=== PATIENT | female | born 1985 | race Caucasian/White ===

== ENCOUNTER → 2016-11-13 | Outpatient (CLI) | payer BC ==
[~2016-11-13] MED LIST: FRRS300 PO; IBUP600T44 PO
== END | disposition home or self-care (01) ==
LOC: C.PAPS 07:53
PROVIDERS: ATTEND Obstetrics & Gynecology
DX: Z01.419 Encounter for gynecological examination (general) (routine) without abnormal findings (principal)

== ENCOUNTER 2017-06-13 12:04 | Inpatient (IN) | payer BC, OTHER ==
[~2017-06-13] VITALS: Ht 162.6 cm; Wt 61.6 kg
[2017-06-13] MEDS ORDERED: SODIUM CHLORIDE 0.9% 1000ML 1,000 ML IV STA (12:17)
[2017-06-13] MEDS ORDERED: MoRPHine SULFATE 4 MG/ML 1 ML CARP\\VIAL ONE (12:17)
[2017-06-13] MEDS ORDERED: ONDANSETRON INJ 2 MG/ML 2 ML VIAL IV STA (12:17)
[2017-06-13] MEDS ORDERED: ONDANSETRON INJ 2 MG/ML 2 ML VIAL ONE (12:17)
[2017-06-13] MEDS ORDERED: MoRPHine SULFATE 4 MG/ML 1 ML CARP\\VIAL IV STA ×2 (12:17→13:50)
[2017-06-13 12:32] LABS: BASO % 0.3 %; BASO ABS # 0.02 K/uL (0-0.2); EOS % 0.6 %; EOS ABS # 0.04 K/uL (0-0.5); HEMATOCRIT 44.3 % (37-47); HEMOGLOBIN 15.2 g/dL (12.0-16.0); LYMPH % 22.8 %; MEAN CELL VOLUME 87.7 fL (80-100); MEAN CORPUSCULAR HEMOGLOBIN 30.1 pg (25-34); MEAN CORPUSCULAR HGB CONC 34.3 g/dl (32-36); MEAN PLATELET VOLUME 10.6 fL (7.4-10.4); MONO % 7.1 %; NEUT % 69.2 %; NEUT ABS # 4.87 K/uL (1.4-6.5); PLATELET COUNT 172 K/uL (130-400); RED CELL DISTRIBUTION WIDTH CV 12.4 % (11.5-14.5); RED CELL DISTRIBUTION WIDTH SD 39.3 fL (36.4-46.3); WHITE BLOOD COUNT 7.03 K/uL (4.8-10.8)
[2017-06-13] MEDS ORDERED: ACET-1311 PO (12:37)
[2017-06-13 12:55] LABS: ALBUMIN 4.4 gm/dl (3.4-5.0); CALCIUM 9.2 mg/dl (8.5-10.1); CREATININE 0.82 mg/dl (0.60-1.20); POTASSIUM 3.3 mmol/L (3.5-5.1)
[2017-06-13 12:58] LABS: TOTAL PROTEIN 7.4 gm/dl (6.4-8.2)
--- NOTE | 2017-06-13 13:45 | DIAGNOSTIC IMAGING REPORT ---
ULTRASOUND OF THE PELVIS CLINICAL HISTORY: Left pelvic pain. COMPARISON STUDY: No priors. TECHNIQUE: Real-time, grayscale, and color flow sonography of the pelvis is performed both transabdominally and endovaginally. Images are reviewed in the transverse and longitudinal planes. FINDINGS: Uterus: The uterus is normal in size and echotexture, measuring 8.2 x 4.7 x 6.3 cm. A Nabothian cyst is incidentally noted in the cervix. Endometrium: The endometrium is normal in appearance, and the endometrial stripe is normal in thickness measuring up to 0.4 cm. There is trace fluid within the endometrial canal. An intrauterine device is in place. Ovaries: The ovaries are normal in size and morphology. The right ovary measures 3.6 x 1.8 x 2.2 cm and the left ovary measures 4.2 x 2.8 x 3.2 cm. A minimally complex predominantly cystic exophytic follicle arises from the right ovary and measures up to 3.2 cm. A dominant follicle in the left ovary measures 2.9 cm. Additional smaller follicles are seen bilaterally. Normal Doppler waveforms are shown within both ovaries. Pelvis: There is trace free fluid in the cul-de-sac. No concerning adnexal lesion is seen. Viscera: Survey images of the left kidney show moderate hydronephrosis. IMPRESSION: 1. No acute sonographic abnormality is identified in the pelvis. 2. Moderate left hydronephrosis is identified. Given the reported history of left pelvic pain considering nephrolithiasis as a possible etiology. 3. Trace fluid is noted in the endometrial canal and an intrauterine device is in place. 4. Dominant follicles are noted in the ovaries. The largest follicle on the right is minimally complex and exophytic. A precautionary follow-up ultrasound is recommended in 3 menstrual cycles to document resolution. 5. Trace free fluid in the cul-de-sac is likely within physiologic limits. Electronically signed by: Errol Rabago M.D. 06/13/2017 1:44 PM Dictated Date/Time: 06/13/2017 1:39 PM
[2017-06-13] MEDS ORDERED: KETOROLAC TROMETHAMINE 30 MG/ML VIAL IV STA (13:50)
--- NOTE | 2017-06-13 14:55 | DIAGNOSTIC IMAGING REPORT ---
CT SCAN OF THE ABDOMEN AND PELVIS WITHOUT IV CONTRAST CLINICAL HISTORY: Left lower quadrant abdominal pain. Hydronephrosis seen by ultrasound. COMPARISON STUDY: Pelvic ultrasound dated 06/13/2017. TECHNIQUE: CT scan of the abdomen and pelvis is performed from the lung bases to the proximal femora. Images are reviewed in the axial, sagittal, and coronal planes. IV contrast was not administered for this examination. A dose lowering technique was utilized adhering to the principles of ALARA. CT DOSE: 506.74 mGy.cm FINDINGS: Lung bases: The heart is normal in size and without pericardial effusion. The lung bases are clear. Liver: The unenhanced liver is normal in size, contour, and attenuation. There is no intrahepatic biliary ductal dilatation. An 8 mm cyst is noted in the right lobe. Gallbladder: Unremarkable. Spleen: Normal in size and attenuation. Pancreas: Unremarkable. Adrenal glands: Unremarkable. Kidneys: The unenhanced kidneys are normal in size. There is a 7 mm obstructing calculus in the distal left ureter seen on image #[id number]. This is located approximately 2.5 cm above the vesicoureteral junction and causes moderate left hydroureteronephrosis. There is associated left-sided perinephric and periureteric stranding and trace fluid. No additional calculi are identified in the left kidney. A punctate nonobstructing right renal calculus is noted. There is no right-sided hydronephrosis. There is no evidence of contour deforming renal mass lesion. Abdominal vasculature: The abdominal aorta is normal in course and caliber. Bowel: The small bowel and colon are normal in course and caliber. The appendix is well-visualized and normal. Peritoneum: There is no intraperitoneal free air or abdominal ascites. There is a fat-containing umbilical hernia. Lymphadenopathy: None. Pelvic viscera: The there is a small focus of gas within the bladder lumen. The bladder is otherwise normal as visualized. Uterus is normal in appearance noting an intrauterine device in place. Large bilateral ovarian follicles are observed measure up to 2.9 cm. The largest follicle on the right appears hyperdense and is likely hemorrhagic. There is trace free fluid in the cul-de-sac. Skeletal structures: No lytic or blastic lesions are seen. IMPRESSION: 1. There is a 7 mm obstructing calculus in the distal left ureter. This causes moderate left hydroureteronephrosis. 2. No additional left renal calculi are identified. A punctate nonobstructing calculus is seen on the right. 3. A small focus of gas is present within the bladder lumen and may be related to instrumentation. Correlation with urinalysis will be required. 4. Trace free fluid in the cul-de-sac is nonspecific and likely within physiologic limits. 5. Bilateral ovarian follicles as above. A hyperdense follicle on the right is likely hemorrhagic. Electronically signed by: Errol Rabago M.D. 06/13/2017 2:54 PM Dictated Date/Time: 06/13/2017 2:45 PM
--- NOTE | 2017-06-13 16:04 | EMERGENCY ROOM VISIT NOTE ---
History First contact with patient: 12:09 Chief Complaint: ABDOMINAL PAIN Stated Complaint: L BACK SIDE Nursing Triage Summary: Sudden onset of severe left lower quadrant pain. No vomiting or nausea. Patient with no hx of kidney stones. Patient states her urine has been dark. History of Present Illness The patient is a 31 year old female who presents to the Emergency Room via private vehicle accompanied by with complaints of "abdominal pain/left flank pain". The patient states that she was at [employer] when she developed abrupt onset of left lower quadrant abdominal pain and also left-sided flank pain. She notes she has an IUD in place. She denies a history of ovarian cysts or stones. Her pain is a 10/10. She denies taking any medications. She notes that her urine has been red recently. Review of Systems A complete 10-point Review of Systems was discussed with the patient, with pertinent positives and negatives listed in the History of Present Illness. All remaining Review of Systems questions can be considered negative unless otherwise specified. Past Medical/Surgical History IUD placement Family History No pertinent Social History Smoking Status: Never Smoker Social History: Pt. lives locally with family Current/Historical Medications Scheduled PRN Acetaminophen (Tylenol), 650 MG PO for Mild Pain Allergies Coded Allergies: No Known Allergies (Verified , 06/13/17) Physical Exam Vital Signs Date Time Temp Pulse Resp B/P (MAP) Pulse Ox O2 Delivery O2 Flow Rate FiO2 06/13/17 13:58 67 18 117/80 97 Room Air 06/13/17 12:28 71 06/13/17 12:27 75 20 113/78 100 Room Air 06/13/17 12:22 100 Room Air 06/13/17 12:07 36.5 83 18 122/80 100 Room Air Physical Exam VITAL SIGNS - Vital signs and nursing notes were reviewed. Stable. GENERAL - 31-year-old female appearing her stated age who is in no acute distress but appears to be in pain. Communicates well with provider and answers questions appropriately. SKIN - Without rashes. No meningeal or petechial rashes. HEAD - NC/AT. EYES - PERRL with EOMI bilaterally. Sclera anicteric. EARS - No deformities of external structures noted on gross examination bilaterally. NOSE - Midline and without cyanosis. No epistaxis or purulent drainage noted. MOUTH/OROPHARYNX - Without perioral cyanosis. NECK - Neck with FROM. LUNGS - Chest wall symmetric without accessory muscle use, intercostals retractions, or central cyanosis. Normal vesicular breath sounds CTA B/L. No wheezes, rales, or rhonchi appreciated. CARDIAC - RRR with S1/S2. No murmur, rubs, or gallops appreciated. ABDOMEN - Abdominal contour normal without pulsations or visible masses. LLQ abd tenderness noted. WNL bowel sounds. EXTREMITIES - No clubbing or peripheral cyanosis. No pretibial edema present. + 5/5 strength noted in UE/LE bilaterally. NEUROLOGIC - Cranial nerves II through XII grossly intact. Sensory intact to light touch throughout. PSYCH - A&O, and cooperates fully with examiner. Pt is very pleasant and interacts well with examiner. Medical Decision & Procedures ER Provider Diagnostic Interpretation: ULTRASOUND OF THE PELVIS CLINICAL HISTORY: Left pelvic pain. COMPARISON STUDY: No priors. TECHNIQUE: Real-time, grayscale, and color flow sonography of the pelvis is performed both transabdominally and endovaginally. Images are reviewed in the transverse and longitudinal planes. FINDINGS: Uterus: The uterus is normal in size and echotexture, measuring 8.2 x 4.7 x 6.3 cm. A Nabothian cyst is incidentally noted in the cervix. Endometrium: The endometrium is normal in appearance, and the endometrial stripe is normal in thickness measuring up to 0.4 cm. There is trace fluid within the endometrial canal. An intrauterine device is in place. Ovaries: The ovaries are normal in size and morphology. The right ovary measures 3.6 x 1.8 x 2.2 cm and the left ovary measures 4.2 x 2.8 x 3.2 cm. A minimally complex predominantly cystic exophytic follicle arises from the right ovary and measures up to 3.2 cm. A dominant follicle in the left ovary measures 2.9 cm. Additional smaller follicles are seen bilaterally. Normal Doppler waveforms are shown within both ovaries. Pelvis: There is trace free fluid in the cul-de-sac. No concerning adnexal lesion is seen. Viscera: Survey images of the left kidney show moderate hydronephrosis. IMPRESSION: 1. No acute sonographic abnormality is identified in the pelvis. 2. Moderate left hydronephrosis is identified. Given the reported history of left pelvic pain considering nephrolithiasis as a possible etiology. 3. Trace fluid is noted in the endometrial canal and an intrauterine device is in place. 4. Dominant follicles are noted in the ovaries. The largest follicle on the right is minimally complex and exophytic. A precautionary follow-up ultrasound is recommended in 3 menstrual cycles to document resolution. 5. Trace free fluid in the cul-de-sac is likely within physiologic limits. Electronically signed by: Errol Rabago M.D. 06/13/2017 1:44 PM Dictated Date/Time: 06/13/2017 1:[address] SCAN OF THE ABDOMEN AND PELVIS WITHOUT IV CONTRAST CLINICAL HISTORY: Left lower quadrant abdominal pain. Hydronephrosis seen by ultrasound. COMPARISON STUDY: Pelvic ultrasound dated 06/13/2017. TECHNIQUE: CT scan of the abdomen and pelvis is performed from the lung bases to the proximal femora. Images are reviewed in the axial, sagittal, and coronal planes. IV contrast was not administered for this examination. A dose lowering technique was utilized adhering to the principles of ALARA. CT DOSE: 506.74 mGy.cm FINDINGS: Lung bases: The heart is normal in size and without pericardial effusion. The lung bases are clear. Liver: The unenhanced liver is normal in size, contour, and attenuation. There is no intrahepatic biliary ductal dilatation. An 8 mm cyst is noted in the right lobe. Gallbladder: Unremarkable. Spleen: Normal in size and attenuation. Pancreas: Unremarkable. Adrenal glands: Unremarkable. Kidneys: The unenhanced kidneys are normal in size. There is a 7 mm obstructing calculus in the distal left ureter seen on image #[id number]. This is located approximately 2.5 cm above the vesicoureteral junction and causes moderate left hydroureteronephrosis. There is associated left-sided perinephric and periureteric stranding and trace fluid. No additional calculi are identified in the left kidney. A punctate nonobstructing right renal calculus is noted. There is no right-sided hydronephrosis. There is no evidence of contour deforming renal mass lesion. Abdominal vasculature: The abdominal aorta is normal in course and caliber. Bowel: The small bowel and colon are normal in course and caliber. The appendix is well-visualized and normal. Peritoneum: There is no intraperitoneal free air or abdominal ascites. There is a fat-containing umbilical hernia. Lymphadenopathy: None. Pelvic viscera: The there is a small focus of gas within the bladder lumen. The bladder is otherwise normal as visualized. Uterus is normal in appearance noting an intrauterine device in place. Large bilateral ovarian follicles are observed measure up to 2.9 cm. The largest follicle on the right appears hyperdense and is likely hemorrhagic. There is trace free fluid in the cul-de-sac. Skeletal structures: No lytic or blastic lesions are seen. IMPRESSION: 1. There is a 7 mm obstructing calculus in the distal left ureter. This causes moderate left hydroureteronephrosis. 2. No additional left renal calculi are identified. A punctate nonobstructing calculus is seen on the right. 3. A small focus of gas is present within the bladder lumen and may be related to instrumentation. Correlation with urinalysis will be required. 4. Trace free fluid in the cul-de-sac is nonspecific and likely within physiologic limits. 5. Bilateral ovarian follicles as above. A hyperdense follicle on the right is likely hemorrhagic. Electronically signed by: Errol Rabago M.D. 06/13/2017 2:54 PM Dictated Date/Time: 06/13/2017 2:45 PM Laboratory Results 06/13/17 12:13 Red Blood Count 5.05, Mean Corpuscular Volume 87.7, Mean Corpuscular Hemoglobin 30.1, Mean Corpuscular Hemoglobin Concent 34.3, Mean Platelet Volume 10.6, Neutrophils (%) (Auto) 69.2, Lymphocytes (%) (Auto) 22.8, Monocytes (%) (Auto) 7.1, Eosinophils (%) (Auto) 0.6, Basophils (%) (Auto) 0.3, Neutrophils # (Auto) 4.87, Lymphocytes # (Auto) 1.60, Monocytes # (Auto) 0.50, Eosinophils # (Auto) 0.04, Basophils # (Auto) 0.02 06/13/17 12:13 Test 06/13/17 12:13 06/13/17 13:40 White Blood Count 7.03 K/uL (4.8-10.8) Red Blood Count 5.05 M/uL (4.2-5.4) Hemoglobin 15.2 g/dL (12.0-16.0) Hematocrit 44.3 % (37-47) Mean Corpuscular Volume 87.7 fL (80-100) Mean Corpuscular Hemoglobin 30.1 pg (25-34) Mean Corpuscular Hemoglobin Concent 34.3 g/dl (32-36) Platelet Count 172 K/uL (130-400) Mean Platelet Volume 10.6 fL (7.4-10.4) Neutrophils (%) (Auto) 69.2 % Lymphocytes (%) (Auto) 22.8 % Monocytes (%) (Auto) 7.1 % Eosinophils (%) (Auto) 0.6 % Basophils (%) (Auto) 0.3 % Neutrophils # (Auto) 4.87 K/uL (1.4-6.5) Lymphocytes # (Auto) 1.60 K/uL (1.2-3.4) Monocytes # (Auto) 0.50 K/uL (0.11-0.59) Eosinophils # (Auto) 0.04 K/uL (0-0.5) Basophils # (Auto) 0.02 K/uL (0-0.2) RDW Standard Deviation 39.3 fL (36.4-46.3) RDW Coefficient of Variation 12.4 % (11.5-14.5) Immature Granulocyte % (Auto) 0.0 % Immature Granulocyte # (Auto) 0.00 K/uL (0.00-0.02) Anion Gap 9.0 mmol/L (3-11) Est Creatinine Clear Calc Drug Dose 81.4 ml/min Estimated GFR () 109.7 Estimated GFR (Non- 94.7 BUN/Creatinine Ratio 15.5 (10-20) Calcium Level 9.2 mg/dl (8.5-10.1) Magnesium Level 1.7 mg/dl (1.8-2.4) Total Bilirubin 1.7 mg/dl (0.2-1) Aspartate Amino Transf (AST/SGOT) 14 U/L (15-37) Alanine Aminotransferase (ALT/SGPT) 23 U/L (12-78) Alkaline Phosphatase 77 U/L (45-117) Total Protein 7.4 gm/dl (6.4-8.2) Albumin 4.4 gm/dl (3.4-5.0) Globulin 3.0 gm/dl (2.5-4.0) Albumin/Globulin Ratio 1.5 (0.9-2) Urine Color ORANGE Urine Appearance TURBID (CLEAR) Urine pH 6.0 (4.5-7.5) Urine Specific [place] 1.023 (1.000-1.030) Urine Protein 1+ (NEG) Urine Glucose (UA) NEG (NEG) Urine Ketones 1+ (NEG) Urine Occult Blood 3+ (NEG) Urine Nitrite NEG (NEG) Urine Bilirubin NEG (NEG) Urine Urobilinogen NEG (NEG) Urine Leukocyte Esterase SMALL (NEG) Urine WBC (Auto) 5-10 /hpf (0-5) Urine RBC (Auto) >30 /hpf (0-4) Urine Hyaline Casts (Auto) 1-5 /lpf (0-5) Urine Epithelial Cells (Auto) >30 /lpf (0-5) Urine Bacteria (Auto) NEG (NEG) Urine Test NEG (NEG) Medications Administered Medications (Trade) Dose Ordered Sig/Julien Route Start Time Stop Time Status Last Admin Dose Admin Ondansetron HCl (Zofran Inj) 4 mg STK-MED ONCE .ROUTE 06/13/17 12:17 06/13/17 12:18 DC 06/13/17 12:25 4 MG Morphine Sulfate (MoRPHine SULFATE INJ) 4 mg STK-MED ONCE .ROUTE 06/13/17 12:17 06/13/17 12:18 DC 06/13/17 12:26 4 MG Sodium Chloride 1,000 ml @ 999 mls/hr Q1H1M STAT IV 06/13/17 12:17 06/13/17 13:17 DC 06/13/17 12:17 999 MLS/HR Ketorolac Tromethamine (Toradol Inj) 30 mg NOW STAT IV 06/13/17 13:50 06/13/17 13:51 DC 06/13/17 13:57 30 MG Morphine Sulfate (MoRPHine SULFATE INJ) 4 mg NOW STAT IV 06/13/17 13:50 06/13/17 13:51 DC 06/13/17 13:58 4 MG Medical Decision Patient was seen and evaluated as above and evaluated in room C4 there is left lower quadrant abdominal pain/left flank pain. She is in quite a bit of pain as she is. Tearful. The concern is that this could be of ovarian etiology therefore ultrasound was obtained. No history of stones. At that point the urine was not able to be obtained. She just urinated prior to coming here. Ultrasound reveals essentially no acute process. She was educated upon other findings to follow-up with the [facility]. This was made to obtain a CT scan without for stone protocol. This does reveal a 7 mm stone. She was given morphine, Toradol and Zofran here. She was given more morphine. Benefit versus risk of inpatient management versus going home was discussed based upon her level of pain she elected to stay in the hospital which I do believe is reasonable. No leukocytosis or anemia. No metabolic emergent abnormality. She was educated upon today's findings. No evidence of UTI superimposed. Case was discussed with the attending physician and subsequently the hospitalist. These are for the documentation regarding her stay. In the evaluation and treatment of this patient the following differential diagnoses were entertained: Ovarian torsion, renal calculi, diverticulitis, AAA , IUD abnormality, ectopic , among others. Impression Primary Impression: Ureteral calculus, left Additional Impressions: Hydroureteronephrosis Hypokalemia Departure Information Dispostion Admitted as an inpatient Condition FAIR Referrals Brionna Campbell D.O. (PCP) Patient Instructions My [facility] Problem Qualifiers
[2017-06-13 16:20] VITALS: O2SAT 97; BMI 24.2
[2017-06-13] MEDS ORDERED: POTASSIUM CHLORIDE 10 MEQ TABCR PO STA (16:40)
--- NOTE | 2017-06-13 16:43 | History and Physical ---
History & Physical Date & Time of Service: Jun 13, 2017 at 16:43 Chief Complaint: L Back Side Primary Care Physician: Brionna Campbell D.O. History of Present Illness Source: patient Patient is a 31 yr female with PMH of Asthma, chronic sinusitis presents with history of left flank pain which started this morning. She states flank pain is dull to sharp, 5/10 intensity, radiates to left groin. Denies any aggravating/ relieving factors. She also denies fever, chills, dysuria, hematuria or previous kidney stones in the past. CT abdomen showed a 7 mm obstructing calculus in the distal left ureter. Denies any history of chest pain, SOB, dizziness, cough, wheezing, nausea, vomiting, diarrhea, recent change in medications. Past Medical/Surgical History Past Surgical History: Foot surgery Family History Reviewed, Not contributory Social History Smoking Status: Never Smoker Alcohol Use: socially Drug Use: none Immunizations History of Influenza Vaccine: No History of Tetanus Vaccine?: Yes Allergies Coded Allergies: No Known Allergies (Verified , 06/13/17) Home Medications Scheduled Albuterol Hfa (Ventolin Hfa), 2-4 PUFFS INH Q6H Scheduled PRN Acetaminophen (Tylenol), 650 MG PO for Mild Pain Review of Systems See HPI for pertinent positives & negatives. A total of 10 systems reviewed and were otherwise negative. Physical Exam Vital Signs Date Time Temp Pulse Resp B/P (MAP) Pulse Ox O2 Delivery O2 Flow Rate FiO2 06/13/17 16:29 99 06/13/17 16:20 97 Room Air 06/13/17 15:50 84 16 111/69 99 Room Air 06/13/17 13:58 67 18 117/80 97 Room Air 06/13/17 12:28 71 06/13/17 12:27 75 20 113/78 100 Room Air 06/13/17 12:22 100 Room Air 06/13/17 12:07 36.5 83 18 122/80 100 Room Air General Appearance: WD/WN, no apparent distress Head: normocephalic, atraumatic Eyes: normal inspection, PERRL, EOMI, sclerae normal ENT: normal ENT inspection, hearing grossly normal Neck: supple, trachea midline Respiratory/Chest: chest non-tender, lungs clear, normal breath sounds, no respiratory distress, no accessory muscle use Cardiovascular: regular rate, rhythm, no edema, no murmur, + tachycardia Abdomen/GI: normal bowel sounds, soft, + tenderness (left flank) Back: normal inspection Extremities/Musculoskelatal: normal inspection, no pedal edema Neurologic/Psych: 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, no motor/sensory deficits, alert, normal mood/affect, oriented x 3 Skin: normal color, warm/dry Diagnostics Laboratory Results Results Past 24 Hours Test 06/13/17 12:13 06/13/17 13:40 Range/Units White Blood Count 7.03 4.8-10.8 K/uL Red Blood Count 5.05 4.2-5.4 M/uL Hemoglobin 15.2 12.0-16.0 g/dL Hematocrit 44.3 37-47 % Mean Corpuscular Volume 87.7 80-100 fL Mean Corpuscular Hemoglobin 30.1 25-34 pg Mean Corpuscular Hemoglobin Concent 34.3 32-36 g/dl Platelet Count 172 130-400 K/uL Mean Platelet Volume 10.6 7.4-10.4 fL Neutrophils (%) (Auto) 69.2 % Lymphocytes (%) (Auto) 22.8 % Monocytes (%) (Auto) 7.1 % Eosinophils (%) (Auto) 0.6 % Basophils (%) (Auto) 0.3 % Neutrophils # (Auto) 4.87 1.4-6.5 K/uL Lymphocytes # (Auto) 1.60 1.2-3.4 K/uL Monocytes # (Auto) 0.50 0.11-0.59 K/uL Eosinophils # (Auto) 0.04 0-0.5 K/uL Basophils # (Auto) 0.02 0-0.2 K/uL RDW Standard Deviation 39.3 36.4-46.3 fL RDW Coefficient of Variation 12.4 11.5-14.5 % Immature Granulocyte % (Auto) 0.0 % Immature Granulocyte # (Auto) 0.00 0.00-0.02 K/uL Sodium Level 138 136-145 mmol/L Potassium Level 3.3 3.5-5.1 mmol/L Chloride Level 103 98-107 mmol/L Carbon Dioxide Level 26 21-32 mmol/L Anion Gap 9.0 3-11 mmol/L Blood Urea Nitrogen 13 7-18 mg/dl Creatinine 0.82 0.60-1.20 mg/dl Est Creatinine Clear Calc Drug Dose 81.4 ml/min Estimated GFR () 109.7 Estimated GFR (Non- 94.7 BUN/Creatinine Ratio 15.5 10-20 Random Glucose 117 70-99 mg/dl Calcium Level 9.2 8.5-10.1 mg/dl Magnesium Level 1.7 1.8-2.4 mg/dl Total Bilirubin 1.7 0.2-1 mg/dl Aspartate Amino Transf (AST/SGOT) 14 15-37 U/L Alanine Aminotransferase (ALT/SGPT) 23 12-78 U/L Alkaline Phosphatase 77 45-117 U/L Total Protein 7.4 6.4-8.2 gm/dl Albumin 4.4 3.4-5.0 gm/dl Globulin 3.0 2.5-4.0 gm/dl Albumin/Globulin Ratio 1.5 0.9-2 Urine Color ORANGE Urine Appearance TURBID CLEAR Urine pH 6.0 4.5-7.5 Urine Specific [place] 1.023 1.000-1.030 Urine Protein 1+ NEG Urine Glucose (UA) NEG NEG Urine Ketones 1+ NEG Urine Occult Blood 3+ NEG Urine Nitrite NEG NEG Urine Bilirubin NEG NEG Urine Urobilinogen NEG NEG Urine Leukocyte Esterase SMALL NEG Urine WBC (Auto) 5-10 0-5 /hpf Urine RBC (Auto) >30 0-4 /hpf Urine Hyaline Casts (Auto) 1-5 0-5 /lpf Urine Epithelial Cells (Auto) >30 0-5 /lpf Urine Bacteria (Auto) NEG NEG Urine Test NEG NEG Diagnostic Radiology CT ABD: 1. There is a 7 mm obstructing calculus in the distal left ureter. This causes moderate left hydroureteronephrosis. 2. No additional left renal calculi are identified. A punctate nonobstructing calculus is seen on the right. 3. A small focus of gas is present within the bladder lumen and may be related to instrumentation. Correlation with urinalysis will be required. 4. Trace free fluid in the cul-de-sac is nonspecific and likely within physiologic limits. 5. Bilateral ovarian follicles as above. A hyperdense follicle on the right is likely hemorrhagic. Impression Assessment and Plan Renal Colic: Obstructive Uropathy : CT abdomen showed: 7 mm obstructing calculus in the distal left ureter and moderate left hydroureteronephrosis. No signs of Sepsis IV fluids Start on Flomax Urology consulted Strain Urine NPO after midnight for possible intervention Pain control Hypokalemia/Hypomagnesemia: Replace and monitor H/O Asthma: Well controlled No signs of exacerbation Nebs PRN DVT Px: SCDs Code Status: Full Code Advanced Directives Existing Living Will: No Existing Power of Pressure Tester: No Resuscitation Status VTE Prophylaxis Will order VTE Prophylaxis: Yes
[2017-06-13] MEDS ORDERED: ALBUTEROL 0.083% NEBU SOLN 3 ML VIAL INH PRN (16:45)
[2017-06-13] MEDS ORDERED: ONDANSETRON INJ 2 MG/ML 2 ML VIAL IV PRN (16:45)
[2017-06-13] MEDS ORDERED: VNTHFA/IN INH (16:49)
[2017-06-13] MEDS ORDERED: TAMSULOSIN HCL 0.4 MG CAP PO STA (16:52)
[2017-06-13 18:29] VITALS: BP 102/67; PULSE 84; TEMP 36.9; O2SAT 99
[2017-06-13 18:30] VITALS: Ht 162.6 cm; Wt 61.6 kg
[2017-06-13] MEDS: MoRPHine SULFATE 2 MG/ML CARP IV PRN ×2 (18:47→22:44)
[2017-06-13] MEDS: NSS + 20MEQ KCL 1000ML 1,000 ML IV SCH (19:13)
[2017-06-13] MEDS: ACETAMINOPHEN 325 MG TAB PO PRN (22:23)
[2017-06-13 23:01] VITALS: BP 106/71; PULSE 75; TEMP 36.8; O2SAT 98
[2017-06-13] MEDS ORDERED: IV FLUIDS COMPLETED PRN (23:15)
[2017-06-14] VITALS (7 sets, daily range): BP systolic 93–107; BP diastolic 56–69; PULSE 78–97; TEMP 36.5–36.8; O2SAT 97–100
[2017-06-14] MEDS: MoRPHine SULFATE 2 MG/ML CARP IV PRN (03:58)
[2017-06-14] MEDS: NSS + 20MEQ KCL 1000ML 1,000 ML IV SCH ×3 (05:40→18:47)
[2017-06-14] MEDS ORDERED: MoRPHine SULFATE 4 MG/ML 1 ML CARP\\VIAL IV PRN (06:30)
[2017-06-14 07:03] LABS: HEMOGLOBIN 13.2 g/dL (12.0-16.0); MEAN CELL VOLUME 88.2 fL (80-100); MEAN CORPUSCULAR HEMOGLOBIN 30.6 pg (25-34); MEAN CORPUSCULAR HGB CONC 34.7 g/dl (32-36); MEAN PLATELET VOLUME 10.9 fL (7.4-10.4); PLATELET COUNT 156 K/uL (130-400); RED CELL DISTRIBUTION WIDTH CV 12.3 % (11.5-14.5); RED CELL DISTRIBUTION WIDTH SD 39.9 fL (36.4-46.3); WHITE BLOOD COUNT 7.83 K/uL (4.8-10.8)
[2017-06-14] MEDS: TRAMADOL HCL 50 MG TAB PO PRN ×2 (07:13→21:16)
[2017-06-14 07:36] LABS: CREATININE 0.76 mg/dl (0.60-1.20); POTASSIUM 4.1 mmol/L (3.5-5.1)
[2017-06-14] MEDS ORDERED: TAMSULOSIN HCL 0.4 MG CAP PO SCH (09:00)
--- NOTE | 2017-06-14 09:31 | Urology Consultation ---
History General Date of Service: Jun 14, 2017. Chief Complaint: left flank pain Primary Care Physician: Brionna Campbell D.O. Pt seen a urologist before?: No History of Present Illness 31 yo female presents to [facility] with c/o left flank pain that started yesterday. The pain was accompanied by nausea. She denies any dysuria or hematuria. Denies f/c. CT scan showing a 7mm distal left ureteral stone. She has no previous hx of stones. She reports she does have a high salt diet, and usually only drinks 2 cups of coffee all day. Pt c/o pain 6/10 this morning. States she cannot go home feeling this way. This pt is afebrile. White count and Cr are normal. Imaging Imaging: CT Laboratory Last 24 Hours Test 06/13/17 12:13 06/13/17 13:40 06/14/17 06:26 White Blood Count 7.03 K/uL 7.83 K/uL Red Blood Count 5.05 M/uL 4.31 M/uL Hemoglobin 15.2 g/dL 13.2 g/dL Hematocrit 44.3 % 38.0 % Mean Corpuscular Volume 87.7 fL 88.2 fL Mean Corpuscular Hemoglobin 30.1 pg 30.6 pg Mean Corpuscular Hemoglobin Concent 34.3 g/dl 34.7 g/dl Platelet Count 172 K/uL 156 K/uL Mean Platelet Volume 10.6 fL 10.9 fL Neutrophils (%) (Auto) 69.2 % Lymphocytes (%) (Auto) 22.8 % Monocytes (%) (Auto) 7.1 % Eosinophils (%) (Auto) 0.6 % Basophils (%) (Auto) 0.3 % Neutrophils # (Auto) 4.87 K/uL Lymphocytes # (Auto) 1.60 K/uL Monocytes # (Auto) 0.50 K/uL Eosinophils # (Auto) 0.04 K/uL Basophils # (Auto) 0.02 K/uL RDW Standard Deviation 39.3 fL 39.9 fL RDW Coefficient of Variation 12.4 % 12.3 % Immature Granulocyte % (Auto) 0.0 % Immature Granulocyte # (Auto) 0.00 K/uL Sodium Level 138 mmol/L 139 mmol/L Potassium Level 3.3 mmol/L 4.1 mmol/L Chloride Level 103 mmol/L 108 mmol/L Carbon Dioxide Level 26 mmol/L 24 mmol/L Anion Gap 9.0 mmol/L 8.0 mmol/L Blood Urea Nitrogen 13 mg/dl 8 mg/dl Creatinine 0.82 mg/dl 0.76 mg/dl Est Creatinine Clear Calc Drug Dose 81.4 ml/min 91.8 ml/min Estimated GFR () 109.7 120.3 Estimated GFR (Non- 94.7 103.8 BUN/Creatinine Ratio 15.5 10.0 Random Glucose 117 mg/dl 106 mg/dl Calcium Level 9.2 mg/dl 8.0 mg/dl Magnesium Level 1.7 mg/dl 1.7 mg/dl Total Bilirubin 1.7 mg/dl Aspartate Amino Transf (AST/SGOT) 14 U/L Alanine Aminotransferase (ALT/SGPT) 23 U/L Alkaline Phosphatase 77 U/L Total Protein 7.4 gm/dl Albumin 4.4 gm/dl Globulin 3.0 gm/dl Albumin/Globulin Ratio 1.5 Urine Color ORANGE Urine Appearance TURBID Urine pH 6.0 Urine Specific [place] 1.023 Urine Protein 1+ Urine Glucose (UA) NEG Urine Ketones 1+ Urine Occult Blood 3+ Urine Nitrite NEG Urine Bilirubin NEG Urine Urobilinogen NEG Urine Leukocyte Esterase SMALL Urine WBC (Auto) 5-10 /hpf Urine RBC (Auto) >30 /hpf Urine Hyaline Casts (Auto) 1-5 /lpf Urine Epithelial Cells (Auto) >30 /lpf Urine Bacteria (Auto) NEG Urine Test NEG Problem List Medical Problems: (1) Hydroureteronephrosis Status: Acute (2) Hypokalemia Status: Acute (3) Ureteral calculus, left Status: Acute Past History asthma, other (chronic sinusitis) Past Surgical History: orthopedic surgery (foot surgery, wisdom tooth extraction ) Family History no family hx of nephrolithiasis Social History Hx Tobacco Use In Past Year?: No Smoking: non-smoker Alcohol: socially Marital status: Housing status: lives with family Occupation status: employed Immunizations History of Influenza Vaccine: No History of Tetanus Vaccine?: Yes History of MDRO No Allergies Coded Allergies: No Known Allergies (Verified , 06/13/17) Medications Home Medications: Home Meds and Scripts Medications Dose Route/Sig Max Daily Dose Days Date Category Ventolin Hfa (Albuterol) 200 Puffs/86295 Mcg Aers 2-4 Puffs INH Q6H 06/13/17 Reported Tylenol (Acetaminophen) 325 Mg Tab 650 Mg PO PRN 06/13/17 Reported Inpatient Medications: Current Inpatient Medications Medications (Trade) Dose Ordered Sig/Julien Route Start Time Stop Time Status Last Admin Dose Admin Acetaminophen (Tylenol Tab) 650 mg Q4H PRN PO 06/13/17 16:45 07/13/17 16:44 06/13/17 22:23 650 MG Ondansetron HCl (Zofran Inj) 4 mg Q6H PRN IV 06/13/17 16:45 07/13/17 16:44 Potassium Chloride/Sodium Chloride 1,000 ml @ 100 mls/hr Q10H IV 06/13/17 19:00 07/13/17 18:59 06/14/17 05:40 100 MLS/HR Tamsulosin HCl (Flomax Cap) 0.4 mg QAM PO 06/14/17 09:00 07/14/17 08:59 06/14/17 09:11 0.4 MG Albuterol Sulfate (Ventolin 0.083% 2.5MG/3ML Neb) 2.5 mg Q6H PRN INH 06/13/17 16:45 07/13/17 16:44 Miscellaneous (Iv Fluids Completed) 1 ea PRN PRN N/A 06/13/17 23:15 06/13/18 23:14 Morphine Sulfate (MoRPHine SULFATE INJ) 4 mg Q3H PRN IV 06/14/17 06:30 06/28/17 06:29 Tramadol HCl (Ultram Tab) not relieved ... Q6H PRN PO 06/14/17 06:30 07/14/17 06:29 06/14/17 07:13 50 MG Ciprofloxacin/ Dextrose (Cipro / D5W) 400 mg PREOP@1200 IV 06/14/17 12:00 06/14/17 20:00 Review of Systems Review of Systems Constitutional: No fever, No chills Eyes: No double vision Neurological: No dizzy Endocrine: No excessive thirst Gastrointestinal: + abdominal pain (left flank pain ), + nausea, No vomiting Cardiovascular: No chest pain Respiratory: No shortness of breath Skin: No rash Musculoskeletal: No back pain Female : No painful urination, No blood in urine Physical Exam Vital Signs: Vital Signs Past 12 Hours Date Time Temp Pulse Resp B/P (MAP) Pulse Ox O2 Delivery O2 Flow Rate FiO2 06/14/17 06:59 36.8 82 16 107/69 (82) 97 Room Air 06/14/17 00:20 Room Air 06/13/17 23:01 36.8 75 18 106/71 (83) 98 Room Air Physical Exam: General Appearance: no apparent distress Eyes: bilateral eyes normal inspection ENT: hearing grossly normal Neck: no JVD Respiratory/Chest: no respiratory distress, no accessory muscle use Cardiovascular: no JVD Extremities: normal inspection Neurologic/Psychiatric: alert, normal mood/affect, oriented x 3 Skin: normal color Assessment & Plan Assessment & Plan Treatment Planned: cystoscopy w/ stent A/P: 7mm distal left ureteral stone AFVSS. Tx options discussed with the pt today have included a trial of passage with MET vs cysto with left ureteral stent placement. Pt prefers intervention at this time. Will plan for a cysto with left ureteral stent placement and possible left ureteroscopy with laser lithotripsy later this afternoon. Risks and benefits of the procedure discussed with the pt. All questions answered. Pt agrees to the procedure at this time. Will order a UC&S. Continue to strain urine. Will check a KUB this morning. Will obtain pre-op chest x-ray and EKG. Cipro pre-op. Thanks for the consult. Will continue to follow along with primary service.
--- NOTE | 2017-06-14 09:44 | DIAGNOSTIC IMAGING REPORT ---
KUB CLINICAL HISTORY: left ureteral stone COMPARISON STUDY: CT scan dated 06/13/2017 FINDINGS: There is no pathologic bowel dilatation. An IUD is visualized. There is a 5 mm left pelvic basin calcification suspicious for distal left ureteral calculus the renal shadows are largely obscured by overlying bowel gas and fecal material. IMPRESSION: 5 mm left pelvic basin calcification, consistent with the patient's known distal left ureteral calculus Electronically signed by: Nathaniel Quinn M.D. 06/14/2017 9:42 AM Dictated Date/Time: 06/14/2017 9:41 AM
--- NOTE | 2017-06-14 09:51 | DIAGNOSTIC IMAGING REPORT ---
CHEST 2 VIEWS ROUTINE CLINICAL HISTORY: 31 years-old Female presenting with PRE-OP. TECHNIQUE: PA and lateral views of the chest were obtained. COMPARISON: None. FINDINGS: Cardiomediastinal silhouette normal. Lungs and pleural spaces clear. Osseous structures normal. Upper abdomen normal. IMPRESSION: 1. No acute cardiopulmonary disease. Electronically signed by: Mauro Acevedo M.D. 06/14/2017 9:49 AM Dictated Date/Time: 06/14/2017 9:49 AM
[2017-06-14] MEDS ORDERED: CIPROFLOXACIN 400MG / 200ML D5W IV SCH (12:00)
[2017-06-14] MEDS ORDERED: FENTANYL CITRATE INJ 50 MCG/1 ML 2 ML VIAL IV PRN (15:15)
[2017-06-14] MEDS ORDERED: ATROPINE SULFATE 0.1 MG/ML 5ML SYR IV PRN (15:15)
[2017-06-14] MEDS ORDERED: EpHEDrine SULFATE INJ 50 MG/ML AMP IV PRN (15:15)
[2017-06-14] MEDS ORDERED: ONDANSETRON INJ 2 MG/ML 2 ML VIAL IV PRN (15:15)
[2017-06-14] MEDS ORDERED: MIDAZOLAM HCL 1 MG/ML 2ML VIAL ONE (15:25)
[2017-06-14] MEDS ORDERED: FENTANYL CITRATE INJ 50 MCG/1 ML 2 ML VIAL ONE (15:25)
[2017-06-14] MEDS ORDERED: ONDANSETRON INJ 2 MG/ML 2 ML VIAL ONE (15:25)
[2017-06-14] MEDS ORDERED: LIDOCAINE HCL 2% 2 ML VIAL (20MG/ML) ONE (15:25)
[2017-06-14] MEDS ORDERED: PROPOFOL IV EMULSION 10 MG/ML 20 ML VIAL IV ONE (15:25)
[2017-06-14] MEDS ORDERED: Cysto-Conray II 17.2% 250ML BOTTLE ONE (15:35)
[2017-06-14] MEDS ORDERED: KETOROLAC TROMETHAMINE 30 MG/ML VIAL ONE (16:15)
--- NOTE | 2017-06-14 16:37 | [facility] Operative Report ---
Operative Report Operative Date Jun 14, 2017. Pre-Operative Diagnosis Obs Left Ureteral Stone Post-Operative Diagnosis Same, Possible calyceal Rupture noted on Retrograde. Procedure(s) Performed Cystoscopy with Left Retrograde and stent placement Surgeon Leoncio Estimated Blood Loss Minimal Findings Obst Left Stone, Grossly dilated and tortrous collecting system Specimens Urine Left Kidney Drains 6 Fr Multilength Stent Left Anesthesia Type MAC Complication(s) none Disposition Recovery Room / PACU Indications Obstructing stone with severe pain and discomfort. Risks and benefits discussed at length. Description of Procedure Patient was consented and brought back to the operating room. Patient was placed under anesthesia in the supine position and moved to the dorsal lithotomy position. Patient was prepped and draped in the regular sterile fashion. A time out was completed. A 30degree Cystoscope was placed into the bladder and the entire bladder was examined. The UO's were identified. The left side was cannulized with a catheter, an aspiration was completed, and a retrograde pyelogram was completed. Possible calyceal rupture of the upper pole was noted. The ureter was grossly dilated with debris drainage. A wire was then placed. With the wire in place, a 6 Fr Multilength Double J stent was placed. Considerable manipulation was necessary to position stent into the renal pelvis. It was confirmed with fluoroscopy. With the stent in place, the bladder was emptied. The scope was removed. The patient was cleaned, aroused from anesthesia, and transferred to the pacu in stable condition having tolerated the procedure well with no complications. I was present and participated in all aspects of the procedure. The patient will be monitored in the PACU until transferred. I attest to the content of the Intraoperative Record and any orders documented therein. Any exceptions are noted below.
[2017-06-14] MEDS ORDERED: KETOROLAC TROMETHAMINE 30 MG/ML VIAL IV PRN (17:00)
[2017-06-14] MEDS ORDERED: OXYCODONE/ACETAMINOPHEN 7.5-325 TAB PO PRN (17:00)
[2017-06-14] MEDS: PHENAZOPYRIDINE HCL 200 MG TAB PO PRN (17:42)
--- NOTE | 2017-06-14 18:08 | Anesthesiology Progress Note ---
Anesthesia Post Op Note Date & Time Jun 14, 2017 at 18:08 Vital Signs Pain Intensity: 0.0 Vital Signs Past 12 Hours Date Time Temp Pulse Resp B/P (MAP) Pulse Ox O2 Delivery O2 Flow Rate FiO2 06/14/17 17:53 78 18 98/64 (75) 98 Room Air 06/14/17 17:15 97 Room Air 06/14/17 17:15 36.5 84 18 96/62 (73) 97 Room Air 06/14/17 17:00 36.9 83 14 96/61 96 Room Air Oxymask 06/14/17 16:50 81 14 94/57 98 Oxymask 10 06/14/17 16:41 36.4 82 14 91/57 98 Oxymask 10 06/14/17 15:19 36.8 91 16 112/81 (91) 98 Room Air 06/14/17 15:05 Room Air 06/14/17 09:00 Room Air 06/14/17 06:59 36.8 82 16 107/69 (82) 97 Room Air Notes Mental Status: alert / awake / arousable, participated in evaluation Pt Amnestic to Procedure: Yes Nausea / Vomiting: adequately controlled Pain: adequately controlled Airway Patency, RR, SpO2: stable & adequate BP & HR: stable & adequate Hydration State: stable & adequate Anesthetic Complications: no major complications apparent
[2017-06-14] MEDS ORDERED: NURSING VERBAL MED ORDER ONE (19:00)
--- NOTE | 2017-06-14 20:59 | Progress Note ---
Medicine Progress Note Date & Time of Visit: Jun 14, 2017 at ~ 19:30 . Subjective Underwent cystoscopy today for left ureteral stone. Experiencing some dysuria and hematuria, otherwise doing well. Mild left flank pain. No nausea or vomiting. No fever or chills. . Objective Last 8 Hrs Date Time Temp Pulse Resp B/P (MAP) Pulse Ox O2 Delivery O2 Flow Rate FiO2 06/14/17 20:15 36.8 79 16 98/63 (75) 99 Room Air 06/14/17 19:15 36.8 81 16 93/56 (68) 100 Room Air 06/14/17 18:15 78 18 99/63 (75) 98 Room Air 06/14/17 17:53 78 18 98/64 (75) 98 Room Air 06/14/17 17:15 97 Room Air 06/14/17 17:15 36.5 84 18 96/62 (73) 97 Room Air 06/14/17 17:00 36.9 83 14 96/61 96 Room Air Oxymask 06/14/17 16:50 81 14 94/57 98 Oxymask 10 06/14/17 16:41 36.4 82 14 91/57 98 Oxymask 10 06/14/17 15:19 36.8 91 16 112/81 (91) 98 Room Air 06/14/17 15:05 Room Air Physical Exam: General- lying in bed, no distress Lungs- clear to auscultation; no respiratory distress Cardiovascular- RRR; no murmur; no gallop; no JVD; no pretibial edema Abdomen- + bowel sounds, soft, minimal left-sided tenderness Extremities- no cyanosis; no calf tenderness Neuro- alert, oriented Skin- warm & dry . Laboratory Results: Last 24 Hours Test 06/14/17 06:26 White Blood Count 7.83 K/uL Red Blood Count 4.31 M/uL Hemoglobin 13.2 g/dL Hematocrit 38.0 % Mean Corpuscular Volume 88.2 fL Mean Corpuscular Hemoglobin 30.6 pg Mean Corpuscular Hemoglobin Concent 34.7 g/dl RDW Standard Deviation 39.9 fL RDW Coefficient of Variation 12.3 % Platelet Count 156 K/uL Mean Platelet Volume 10.9 fL Sodium Level 139 mmol/L Potassium Level 4.1 mmol/L Chloride Level 108 mmol/L Carbon Dioxide Level 24 mmol/L Anion Gap 8.0 mmol/L Blood Urea Nitrogen 8 mg/dl Creatinine 0.76 mg/dl Est Creatinine Clear Calc Drug Dose 91.8 ml/min Estimated GFR () 120.3 Estimated GFR (Non- 103.8 BUN/Creatinine Ratio 10.0 Random Glucose 106 mg/dl Calcium Level 8.0 mg/dl Magnesium Level 1.7 mg/dl Date/Time Source Procedure Growth Status 06/14/17 14:17 Urine , Kidney Left Gram Stain Pending Received 06/14/17 14:17 Urine , Kidney Left Bacterial Culture Pending Received 06/14/17 13:53 Urine , Clean Catch Urine Culture Pending Received Assessment & Plan LEFT URETERAL CALCULUS Underwent cystoscopy with left stent placement. Afebrile. Urine culture pending. Further recommendations/management per Urology. VTE PROPHYLAXIS SCD's. Ambulate. DISPOSITION Family Medicine follow-up with Dr. Jen Campbell. . Current Inpatient Medications: Current Inpatient Medications Medications (Trade) Dose Ordered Sig/Julien Route Start Time Stop Time Status Last Admin Dose Admin Acetaminophen (Tylenol Tab) 650 mg Q4H PRN PO 06/13/17 16:45 07/13/17 16:44 06/13/17 22:23 650 MG Ondansetron HCl (Zofran Inj) 4 mg Q6H PRN IV 06/13/17 16:45 07/13/17 16:44 Potassium Chloride/Sodium Chloride 1,000 ml @ 100 mls/hr Q10H IV 06/13/17 19:00 07/13/17 18:59 06/14/17 18:47 100 MLS/HR Tamsulosin HCl (Flomax Cap) 0.4 mg QAM PO 06/14/17 09:00 07/14/17 08:59 06/14/17 09:11 0.4 MG Albuterol Sulfate (Ventolin 0.083% 2.5MG/3ML Neb) 2.5 mg Q6H PRN INH 06/13/17 16:45 07/13/17 16:44 Miscellaneous (Iv Fluids Completed) 1 ea PRN PRN N/A 06/13/17 23:15 06/13/18 23:14 Morphine Sulfate (MoRPHine SULFATE INJ) 4 mg Q3H PRN IV 06/14/17 06:30 06/28/17 06:29 06/14/17 09:16 4 MG Tramadol HCl (Ultram Tab) not relieved ... Q6H PRN PO 06/14/17 06:30 07/14/17 06:29 06/14/17 07:13 50 MG Ketorolac Tromethamine (Toradol Inj) 30 mg Q6H PRN IV 06/14/17 17:00 06/19/17 16:59 Phenazopyridine HCl (Pyridium Tab) 200 mg TID PRN PO 06/14/17 17:00 07/14/17 16:59 06/14/17 17:42 200 MG Ciprofloxacin/ Dextrose 400 mg/ Prmx 200 ml @ 100 mls/hr Q12@0600,1800 IV 06/15/17 06:00 06/24/17 17:59 Oxycodone/ Acetaminophen (Percocet 7.5-325MG Tab) 1 tab Q4H PRN PO 06/14/17 17:00 06/28/17 16:59
--- NOTE | 2017-06-14 23:05 | DIAGNOSTIC IMAGING REPORT ---
RETROGRADE INCLUDES KUB CLINICAL HISTORY: LT CYSTO/STENT COMPARISON STUDY: CT of the abdomen and pelvis June 13, 2017 and KUB performed earlier today. Fluoroscopy time: 1 minute and 15 seconds. FINDINGS: 3 fluoroscopic images demonstrate a left retrograde exam with left ureteral stent insertion. Stent appears appropriately positioned. There is mild left hydronephrosis. IMPRESSION: Fluoroscopic images from a left retrograde exam with ureteral stent insertion. Electronically signed by: Antonio Jones M.D. 06/14/2017 11:04 PM Dictated Date/Time: 06/14/2017 11:02 PM
[2017-06-15 03:30] VITALS: BP 96/58; PULSE 72; TEMP 36.7; O2SAT 95
[2017-06-15] MEDS: NSS + 20MEQ KCL 1000ML 1,000 ML IV SCH (03:47)
[2017-06-15] MEDS ORDERED: CIPROFLOXACIN / D5W 400 MG in PREMIXED IN D5W 200 ML IV SCH (06:00)
[2017-06-15 07:19] VITALS: BP 84/52; PULSE 69; TEMP 36.7; O2SAT 97
--- NOTE | 2017-06-15 07:52 | Progress Note ---
Subjective Date of Service: Jun 15, 2017. Subjective Pt evaluation today including: conversation w/ patient, chart review, lab review Voiding: no voiding problems 31 yo female s/p left ureteral stent for left ureteral stone. Pt reports some mild discomfort with voiding. Also notes discomfort in the lower back with voiding. + gross hematuria. Denies n/v. UC&S pending. Problem List Medical Problems: (1) Hydroureteronephrosis Status: Acute (2) Hypokalemia Status: Acute (3) Ureteral calculus, left Status: Acute Review of Systems Constitutional: No fever, No chills Respiratory: No shortness of breath Cardiac: No chest pain Abdomen: No pain, No nausea, No vomiting Female : + dysuria, + hematuria Heme: No abnormal bleeding/bruising Objective Vital Signs Date Time Temp Pulse Resp B/P (MAP) Pulse Ox O2 Delivery O2 Flow Rate FiO2 06/15/17 07:19 36.7 69 14 84/52 (63) 97 Room Air 06/15/17 03:30 36.7 72 16 96/58 (71) 95 Room Air 06/14/17 23:25 36.7 97 16 96/62 (73) 97 Room Air 06/14/17 23:20 Room Air 06/14/17 20:15 36.8 79 16 98/63 (75) 99 Room Air 06/14/17 19:15 36.8 81 16 93/56 (68) 100 Room Air 06/14/17 18:15 78 18 99/63 (75) 98 Room Air 06/14/17 17:53 78 18 98/64 (75) 98 Room Air 06/14/17 17:15 97 Room Air 06/14/17 17:15 36.5 84 18 96/62 (73) 97 Room Air 06/14/17 17:00 36.9 83 14 96/61 96 Room Air Oxymask 06/14/17 16:50 81 14 94/57 98 Oxymask 10 06/14/17 16:41 36.4 82 14 91/57 98 Oxymask 10 06/14/17 15:19 36.8 91 16 112/81 (91) 98 Room Air 06/14/17 15:05 Room Air 06/14/17 09:00 Room Air Physical Exam General Appearance: no apparent distress Eyes: normal inspection ENT: hearing grossly normal Neck: no JVD Respiratory/Chest: no respiratory distress, no accessory muscle use Cardiovascular: no JVD Extremities: normal inspection Neurologic/Psychiatric: alert, normal mood/affect, oriented x 3 Skin: normal color Assessment and Plan POD #1 s/p left ureteral stent placement Pt hypotensive at 84/52. ? r/t Flomax. Will hold for now. Pt otherwise doing well post-op. OK for d/c home from perspective. Recommend d/c home on oral pain medication , Pyridium, and Colace. Will arrange for outpatient f/u with Dr. Fang in 1 week to discuss ESWL vs URS for definitive management of stone. Thanks for allowing us to participate in this pt's care. Discharge planning: home
--- NOTE | 2017-06-15 08:05 | Medical Student: [facility] ---
Med Student Progress Note Date of Service Jun 15, 2017. Subjective Pt evaluation today including: conversation w/ patient, physical exam, chart review, lab review Voiding: no voiding problems, no incontinence Anjali is a 31F with a 7mm distal left ureteral stone s/p cystoscopy with left ureteral stent placement. POD day #1. Flank pain is improved. Reports mild dysuria and hematuria but no difficulty voiding Review of Systems Constitutional: No fever, No chills Respiratory: No cough, No shortness of breath Cardiac: No chest pain Abdomen: No nausea, No vomiting Female : + dysuria (mild), + hematuria (mild), No incontinence Neurologic: No problem reported Heme: No night sweats, No problem reported Objective Vital Signs Date Time Temp Pulse Resp B/P (MAP) Pulse Ox O2 Delivery O2 Flow Rate FiO2 06/15/17 07:19 36.7 69 14 84/52 (63) 97 Room Air 06/15/17 03:30 36.7 72 16 96/58 (71) 95 Room Air 06/14/17 23:25 36.7 97 16 96/62 (73) 97 Room Air 06/14/17 23:20 Room Air 06/14/17 20:15 36.8 79 16 98/63 (75) 99 Room Air 06/14/17 19:15 36.8 81 16 93/56 (68) 100 Room Air 06/14/17 18:15 78 18 99/63 (75) 98 Room Air 06/14/17 17:53 78 18 98/64 (75) 98 Room Air 06/14/17 17:15 97 Room Air 06/14/17 17:15 36.5 84 18 96/62 (73) 97 Room Air 06/14/17 17:00 36.9 83 14 96/61 96 Room Air Oxymask 06/14/17 16:50 81 14 94/57 98 Oxymask 10 06/14/17 16:41 36.4 82 14 91/57 98 Oxymask 10 06/14/17 15:19 36.8 91 16 112/81 (91) 98 Room Air 06/14/17 15:05 Room Air 06/14/17 09:00 Room Air Physical Exam General Appearance: WD/WN, no apparent distress ENT: normal ENT inspection, hearing grossly normal Respiratory/Chest: no respiratory distress, no accessory muscle use Cardiovascular: no JVD Abdomen: non tender Neurologic/Psychiatric: no motor/sensory deficits, alert, normal mood/affect, oriented x 3 Skin: normal color, warm/dry Assessment and Plan Assessment and Plan: POD Day #1: cystoscopy with left ureteral stent placement. APVSS: Colic pain is improved. Reports mild dysuria and hematuria, expected with stent in place. Hypotensive after initiation of Flomax on 4 0900, plan to hold. Okay to discharge home from Urology standpoint Recommend d/c flomax Continue colace, pyridium, oral pain medication Follow up with Dr. Fang in approx 1 week in office to discuss definitive ureteral stone management (ESWL vs ureteroscopy with laser lithotripsy) Patient educated on the following: - Expect some hematuria while stent in place. Make office aware or return to ED if uncontrolled pain, unable to void,or urine is "ketchup" color and passing large clots. - Pyridium will turn urine orange. - Increase PO fluid intake - Call office with any questions or concerns
[2017-06-15] MEDS: PHENAZOPYRIDINE HCL 200 MG TAB PO PRN (11:13)
[2017-06-15] MEDS: ACETAMINOPHEN 325 MG TAB PO PRN (11:16)
[2017-06-15 11:53] VITALS: BP 111/77
--- NOTE | 2017-06-15 14:23 | Progress Note ---
Medicine Progress Note Date & Time of Visit: Jun 15, 2017 at 14:23 . Subjective Doing well. No fever. Minimal left flank pain. No dysuria. Minimal nausea, no emesis. . Objective Last 8 Hrs Date Time Temp Pulse Resp B/P (MAP) Pulse Ox O2 Delivery O2 Flow Rate FiO2 06/15/17 11:53 111/77 (88) 06/15/17 08:55 Room Air 06/15/17 07:19 36.7 69 14 84/52 (63) 97 Room Air Physical Exam: General- no distress Lungs- clear to auscultation; no respiratory distress Cardiovascular- RRR; no murmur; no gallop; no JVD; no pretibial edema Abdomen- + bowel sounds, soft, nontender Back- minimal left flank pain Extremities- no cyanosis; no calf tenderness Neuro- alert, oriented Skin- warm & dry . Assessment & Plan LEFT URETERAL CALCULUS Presented with ureteral colic. CT demonstrated 7 mm obstructing calculus in the distant left ureter with associated hydronephrosis. Urology consulted. Underwent cystoscopy with left stent placement. Afebrile. Urine culture negative. Discharged to home on Pyridium, Colace, OTC analgesics. Follow-up with urology next week arranged. VTE PROPHYLAXIS SCD's. Ambulate. DISPOSITION Urology appointment next week with [facility]. Family Medicine follow-up with Dr. Brionna Campbell. . Current Inpatient Medications: Current Inpatient Medications Medications (Trade) Dose Ordered Sig/Julien Route Start Time Stop Time Status Last Admin Dose Admin Acetaminophen (Tylenol Tab) 650 mg Q4H PRN PO 06/13/17 16:45 07/13/17 16:44 06/15/17 11:16 650 MG Ondansetron HCl (Zofran Inj) 4 mg Q6H PRN IV 06/13/17 16:45 07/13/17 16:44 Potassium Chloride/Sodium Chloride 1,000 ml @ 100 mls/hr Q10H IV 06/13/17 19:00 07/13/17 18:59 06/15/17 03:47 100 MLS/HR Tamsulosin HCl (Flomax Cap) 0.4 mg QAM PO 06/14/17 09:00 07/14/17 08:59 Future Hold 06/14/17 09:11 0.4 MG Albuterol Sulfate (Ventolin 0.083% 2.5MG/3ML Neb) 2.5 mg Q6H PRN INH 06/13/17 16:45 07/13/17 16:44 Miscellaneous (Iv Fluids Completed) 1 ea PRN PRN N/A 06/13/17 23:15 06/13/18 23:14 Morphine Sulfate (MoRPHine SULFATE INJ) 4 mg Q3H PRN IV 06/14/17 06:30 06/28/17 06:29 06/14/17 09:16 4 MG Tramadol HCl (Ultram Tab) not relieved ... Q6H PRN PO 06/14/17 06:30 07/14/17 06:29 06/14/17 21:16 50 MG Ketorolac Tromethamine (Toradol Inj) 30 mg Q6H PRN IV 06/14/17 17:00 06/19/17 16:59 06/14/17 22:27 30 MG Phenazopyridine HCl (Pyridium Tab) 200 mg TID PRN PO 06/14/17 17:00 07/14/17 16:59 06/15/17 11:13 200 MG Ciprofloxacin/ Dextrose 400 mg/ Prmx 200 ml @ 100 mls/hr Q12@0600,1800 IV 06/15/17 06:00 06/24/17 17:59 06/15/17 05:58 100 MLS/HR Oxycodone/ Acetaminophen (Percocet 7.5-325MG Tab) 1 tab Q4H PRN PO 06/14/17 17:00 06/28/17 16:59
[2017-06-15] MEDS ORDERED: PHEN-1043 PO (14:26)
[2017-06-15] MEDS ORDERED: DOCU-94 PO (14:26)
--- NOTE | 2017-06-15 14:31 | Discharge Instructions ---
Discharge Instructions Date of Service Jun 15, 2017. Admission Reason for Admission: kidney stone . Discharge Discharge Diagnosis / Problem: kidney stone Discharge Goals Goal(s): Decrease discomfort, Improve disease control Activity Recommendations Activity Limitations: resume your previous activity . Instructions / Follow-Up Instructions / Follow-Up APPOINTMENTS: UROLOGY [facility] next week as scheduled. FAMILY MEDICINE Dr. Campbell OTHER INSTRUCTIONS: Drink plenty of fluids. Strain your urine to collect any stones that you pass. Seek medical attention if you have: * temperature above 101 * worsening back pain, burning when you urinate * chest pain or trouble breathing * abdominal pain, nausea, vomiting * diarrhea, dark stools or bloody stools * any unanswered questions or concerns Call 911 if symptoms are severe. Call if you have any questions or problems. My cell # is [phone]. You can also reach a [facility] hospitalist on duty at [facility] 24 hours a day by calling [phone]. Please take good care of yourself. Evin Garvin . Current Hospital Diet Patient's current hospital diet: Regular Diet Discharge Diet Recommended Diet: Regular Diet Procedures Procedures Performed: Cystoscopy with Left Retrograde and stent placement Pending Studies Studies pending at discharge: no Medical Emergencies . Who to Call and When: Medical Emergencies: If at any time you feel your situation is an emergency, please call 911 immediately. . Non-Emergent Contact Non-Emergency issues call your: Primary Care Provider, Hospital Doctor, Urologist . . "Provider Documentation" section prepared by Evin Garvin. .
[2017-06-15 14:39] VITALS: BP 111/77; PULSE 69; TEMP 36.7; O2SAT 97
--- NOTE | 2017-06-15 20:27 | Discharge Summary ---
Discharge Summary Date of Service Jun 15, 2017. Discharge Summary Admission Date: Jun 13, 2017 at 16:45 Discharge Date: Jun 15, 2017 Discharge Disposition: Home Principal Diagnosis: left ureteral calculus with hydronephrosis . Procedures: Ultrasound pelvis CT abdomen pelvis Cystoscopy with left ureteral stent placement . Consultations: Urology . Pending Studies/Follow-Up: Urinary stone analysis . Medication Reconciliation New Medications: Docusate Sodium (Colace) 100 Mg Cap 100 MG PO BID, #30 CAP Phenazopyridine HCl (Phenazopyridine HCl) 200 Mg Tab 200 MG PO TID PRN for Bladder pain, #21 TAB Continued Medications: Acetaminophen (Tylenol) 325 Mg Tab 650 MG PO PRN for Mild Pain, TAB Albuterol Hfa (Ventolin Hfa) 200 Puffs/40983 Mcg Aers 2-4 PUFFS INH Q6H, #1 INHALER Admission Information HPI (per Admitting provider): Patient is a 31 yr female with PMH of Asthma, chronic sinusitis presents with history of left flank pain which started this morning. She states flank pain is dull to sharp, 5/10 intensity, radiates to left groin. Denies any aggravating/ relieving factors. She also denies fever, chills, dysuria, hematuria or previous kidney stones in the past. CT abdomen showed a 7 mm obstructing calculus in the distal left ureter. Denies any history of chest pain, SOB, dizziness, cough, wheezing, nausea, vomiting, diarrhea, recent change in medications. . Physical Exam (per Admitting): General Appearance: WD/WN, no apparent distress Head: normocephalic, atraumatic Eyes: normal inspection, PERRL, EOMI, sclerae normal ENT: normal ENT inspection, hearing grossly normal Neck: supple, trachea midline Respiratory/Chest: chest non-tender, lungs clear, normal breath sounds, no respiratory distress, no accessory muscle use Cardiovascular: regular rate, rhythm, no edema, no murmur, + tachycardia Abdomen/GI: normal bowel sounds, soft, + tenderness (left flank) Back: normal inspection Extremities/Musculoskelatal: normal inspection, no pedal edema Neurologic/Psych: bag builder II-XII nml as tested, no motor/sensory deficits, alert , normal mood/affect, oriented x 3 Skin: normal color, warm/dry Hospital Course LEFT URETERAL CALCULUS Presented with ureteral colic. CT demonstrated 7 mm obstructing calculus in the distant left ureter with associated hydronephrosis. Urology consulted. Underwent cystoscopy with left stent placement. Afebrile. Urine culture negative. Discharged to home on Pyridium, Colace, OTC analgesics. Follow-up with urology next week arranged. VTE PROPHYLAXIS SCD's. Ambulate. DISPOSITION Urology appointment next week with [facility]. Family Medicine follow-up with Dr. Brionna Campbell. . Discharge Instructions Date of Service Jun 15, 2017. Admission Reason for Admission: kidney stone . Discharge Discharge Diagnosis / Problem: kidney stone Discharge Goals Goal(s): Decrease discomfort, Improve disease control Activity Recommendations Activity Limitations: resume your previous activity . Instructions / Follow-Up Instructions / Follow-Up APPOINTMENTS: [facility]OLOGY [facility] next week as scheduled. FAMILY MEDICINE Dr. Campbell OTHER INSTRUCTIONS: Drink plenty of fluids. Strain your urine to collect any stones that you pass. Seek medical attention if you have: * temperature above 101 * worsening back pain, burning when you urinate * chest pain or trouble breathing * abdominal pain, nausea, vomiting * diarrhea, dark stools or bloody stools * any unanswered questions or concerns Call 911 if symptoms are severe. Call if you have any questions or problems. My cell # is [phone]. You can also reach a [facility] hospitalist on duty at [facility] 24 hours a day by calling [phone]. Please take good care of yourself. Evin Garvin . Current Hospital Diet Patient's current hospital diet: Regular Diet Discharge Diet Recommended Diet: Regular Diet Procedures Procedures Performed: Cystoscopy with Left Retrograde and stent placement Pending Studies Studies pending at discharge: no Medical Emergencies . Who to Call and When: Medical Emergencies: If at any time you feel your situation is an emergency, please call 911 immediately. . Non-Emergent Contact Non-Emergency issues call your: Primary Care Provider, Hospital Doctor, Urologist . . "Provider Documentation" section prepared by Evin Garvin. . Additional Copies To Ama Costello CRNP; Brionna Campbell D.O.
== END 2017-06-15 15:17 | disposition home or self-care (01) | DRG 694 ==
LOC: C.EDB 12:05 → C.MSN 16:45 → ENRESERV 17:13
PROVIDERS: ADMIT Internal Medicine; ATTEND Hospitalist
PROC: 0T778DZ Dilation of Left Ureter with Intraluminal Device, Via Natural or Artificial Opening Endoscopic (ICD-10-PCS; principal; 2017-06-14 17:00)
DX: N13.2 Hydronephrosis with renal and ureteral calculous obstruction (principal); E87.6 Hypokalemia; J45.909 Unspecified asthma, uncomplicated; E83.42 Hypomagnesemia

== ENCOUNTER 2017-07-22 08:38 | Day surgery (SDC) | payer OTHER ==
[2017-07-08 15:20] VITALS: BMI 24.0
[~2017-07-22] VITALS: Ht 160 cm; Wt 61.9 kg
[~2017-07-22 08:38] MED LIST changes: +ACET-1311 PO; +ATROPINE SULFATE 0.1 MG/ML 5ML SYR IV PRN; +CEFU1TAB36 PO; +CIPROFLOXACIN / D5W 400 MG IV SCH; +EpHEDrine SULFATE INJ 50 MG/ML AMP IV PRN; +FENTANYL CITRATE INJ 50 MCG/1 ML 2 ML VIAL IV PRN; -FRRS300 PO; -IBUP600T44 PO; +KETO10TA PO; +ONDANSETRON INJ 2 MG/ML 2 ML VIAL IV PRN; +PHEN-876 PO; +TAMS0.4C38 PO; +VNTHFA/IN INH
[2017-07-22] MEDS ORDERED: MIDAZOLAM HCL 1 MG/ML 2ML VIAL ONE (09:02)
[2017-07-22] MEDS ORDERED: FENTANYL CITRATE INJ 50 MCG/1 ML 2 ML VIAL ONE (09:02)
[2017-07-22] MEDS ORDERED: Cysto-Conray II 17.2% 250ML BOTTLE ONE (09:03)
[2017-07-22 09:10] VITALS: BP 112/68; PULSE 89; TEMP 36.6; O2SAT 100; Ht 160 cm; Wt 61.9 kg
--- NOTE | 2017-07-22 09:11 | History & Physical Bridge Note ---
H&P Re-Evaluation Bridge Note: I have examined the patient, reviewed the History & Physical and in the interval since the performance of the History & Physical I have noted the following changes of clinical significance: No changes noted
--- NOTE | 2017-07-22 09:21 | Discharge Instructions ---
Discharge Instructions Date of Service July 22, 2017. Admission Reason for Admission: Hydronephrosis, Ureteric Stone Discharge Discharge Diagnosis / Problem: Stone, left Discharge Goals Goal(s): Decrease discomfort, Improve function Activity Recommendations Activity Limitations: resume your previous activity Lifting Limitations: gradually increase as tolerated Exercise/Sports Limitations: gradually increase as tolerated . Instructions / Follow-Up Instructions / Follow-Up May ahve blood in urine. May have pelvic discomfort. Call if any fevers or chills. Current Hospital Diet Patient's current hospital diet: Discharge Diet Recommended Diet: Regular Diet Procedures Procedures Performed: Cystoscopy with Left ureterosocpy and Laser Lithotripsy. Pending Studies Studies pending at discharge: no Medical Emergencies . Who to Call and When: Medical Emergencies: If at any time you feel your situation is an emergency, please call 911 immediately. . Non-Emergent Contact Non-Emergency issues call your: Primary Care Provider, Urologist Call Non-Emergent contact if: you have a fever, temperature is above 101, temperature is above 101.5, your pain is not controlled, your pain is worsening , your pain is unusual for you . . "Provider Documentation" section prepared by Keaton Fang. .
[2017-07-22] MEDS ORDERED: CIPR-255 PO (09:22)
[2017-07-22] MEDS ORDERED: OXYC7.5T65 PO (09:22)
[2017-07-22] MEDS ORDERED: PHEN-775 PO (09:22)
[2017-07-22] MEDS ORDERED: OXYCODONE/ACETAMINOPHEN 7.5-325 TAB PO PRN (09:30)
[2017-07-22] MEDS: LACTATED RINGER'S 1000ML 1,000 ML IV SCH ×2 (09:41→10:43)
[2017-07-22] MEDS ORDERED: DEXAMETHASONE SOD INJ 4 MG/ML VIAL ONE (09:53)
[2017-07-22] MEDS ORDERED: LIDOCAINE HCL 2% 2 ML VIAL (20MG/ML) ONE (09:53)
[2017-07-22] MEDS ORDERED: PROPOFOL IV EMULSION 10 MG/ML 20 ML VIAL ONE (09:53)
[2017-07-22] MEDS ORDERED: ONDANSETRON INJ 2 MG/ML 2 ML VIAL ONE (09:53)
--- NOTE | 2017-07-22 10:08 | [facility] Operative Report ---
Operative Report Operative Date July 22, 2017. Pre-Operative Diagnosis Left Ureteral Stone Post-Operative Diagnosis Same Procedure(s) Performed Cystoscopy with left stent exchange, retrograde pyelgram, ureteroscopy, laser lithotripsy, stone basket extraction Surgeon Leoncio Estimated Blood Loss Minimal Findings Distal ureteral stone. Specimens Stone for analysis Drains 6 F Multilength Anesthesia Type General Complication(s) none Disposition Recovery Room / PACU Indications Obstructing stone status post stent. Here for treatment of stone. Risks and benefits discussed. Description of Procedure Patient was consented and brought back to the operating room. Patient was placed under anesthesia in the supine position and moved to the dorsal lithotomy position. Patient was prepped and draped in the regular sterile fashion. A time out was completed. A 30degree Cystoscope was placed into the bladder and the entire bladder was examined. The UO's were identified. The stent was grasped from the left kidney and partially removed. A wire was then placed. With the wire in place, the rigid ureteroscope was selected and taken into the left UO. This was advanced and the stone was identified. A laser was selected and the stone was pulverized to dust and small fragments. The larger fragments were grasped and removed. The entire ureter was then examined. No further stone debris or other issues were noted. The scope was slowly removed with the wire remaining in place. A pyelogram was completed through the scope for stent placement. With the wire in place, a 6 Fr Double J stent was placed. It was confirmed with fluoroscopy. With the stent in place, the bladder was emptied. The scope was removed. The patient was cleaned, aroused from anesthesia, and transferred to the pacu in stable condition having tolerated the procedure well with no complications. I was present and participated in all aspects of the procedure. The patient will be monitored in the PACU until transferred. The stent was placed with string attached to allow removal in office. I attest to the content of the Intraoperative Record and any orders documented therein. Any exceptions are noted below.
--- NOTE | 2017-07-22 10:18 | DIAGNOSTIC IMAGING REPORT ---
RETROGRADE INCLUDES KUB CLINICAL HISTORY: LEFT LASER LITHOTRIPSY, STENT EXCHANGE COMPARISON STUDY: 06/14/2017 FINDINGS: 45 seconds of fluoroscopic time was utilized. 4 intraoperative fluoroscopic spot images are provided for interpretation. The first image demonstrates a guidewire within the lower pole left renal collecting system. There is left-sided hydronephrosis. Subsequent images demonstrate placement of a double-pigtail left-sided nephroureteral stent. Incidental note is made of an IUD. IMPRESSION: 1. Left-sided hydronephrosis 2. Placement of a left-sided nephroureteral stent Electronically signed by: Nathaniel Quinn M.D. 07/22/2017 10:17 AM Dictated Date/Time: 07/22/2017 10:16 AM
--- NOTE | 2017-07-22 10:47 | Anesthesiology Progress Note ---
Anesthesia Post Op Note Date & Time July 22, 2017 at 10:47 Vital Signs Pain Intensity: 0 Vital Signs Past 12 Hours Date Time Temp Pulse Resp B/P (MAP) Pulse Ox O2 Delivery O2 Flow Rate FiO2 07/22/17 10:45 36.2 78 16 95/54 100 Room Air 07/22/17 10:35 71 16 94/57 100 Oxymask 10 07/22/17 10:25 95 16 81/54 98 Oxymask 10 07/22/17 10:16 36.1 80 16 88/55 98 Oxymask 10 07/22/17 09:10 36.6 89 20 112/68 (83) 100 Room Air Notes Mental Status: alert / awake / arousable, participated in evaluation Pt Amnestic to Procedure: Yes Nausea / Vomiting: adequately controlled Pain: adequately controlled Airway Patency, RR, SpO2: stable & adequate BP & HR: stable & adequate Hydration State: stable & adequate Anesthetic Complications: no major complications apparent
[2017-07-22 10:57] VITALS: BP 96/54; PULSE 67; TEMP 36.6; O2SAT 98
[2017-07-22 11:27] VITALS: BP 105/58; PULSE 82; O2SAT 95
[2017-07-22 12:13] VITALS: BP 98/60; TEMP 36.6
== END 2017-07-22 12:15 | disposition home or self-care (01) ==
LOC: C.ACU 08:38
PROVIDERS: ATTEND Urology
DX: N20.1 Calculus of ureter (principal); N13.30 Unspecified hydronephrosis; J45.909 Unspecified asthma, uncomplicated; Z87.442 Personal history of urinary calculi